=== PATIENT | female | born 1980 | race Caucasian/White ===

== ENCOUNTER 2018-10-13 18:54 | Emergency (ER) | payer OTHER ==
[2018-10-13 19:00] VITALS: BP 150/92; PULSE 88; TEMP 99.1; BMI 36.0
[2018-10-13] MEDS ORDERED: DEXAMETHASONE SOD PHOSPHATE 4 MG/1 ML VIAL IM ONE (20:00)
[2018-10-13] MEDS ORDERED: IBUPROFEN 600 MG TABLET (FP) PO ONE ×2 (20:00→20:02)
[2018-10-13] MEDS ORDERED: DEXAMETHASONE SOD PHOSPHATE 4 MG/1 ML VIAL ONE (20:02)
--- NOTE | 2018-10-13 20:22 | PDOC ---
Documentation entered by John Brito SCRIBE, acting as scribe for Beltran Vasquez MD. Beltran Vasquez MD: This documentation has been prepared by the Daryl olivier Nirvannie, SCRIBE, under my direction and personally reviewed by me in its entirety. I confirm that the documentation accurately reflects all work, treatment, procedures, and medical decision making performed by me. History of Present Illness - General Chief Complaint: Sore Throat Stated Complaint: SORE THROAT History Source: Patient, Unavil. due to pt. cond. - History of Present Illness Initial Comments: 10/13/18 19:53 CC: Sore throat. HPI: The patient is a 38 year old female, with no significant past medical history, who presents to the emergency department with 5 days of a sore throat. Patient notes an associated productive cough with yellow sputum and notes taking Motrin occasionally, with minimal relief prompting her arrival to the ED. She denies recent fevers, chills, headache or dizziness. She denies recent nausea, vomiting, diarrhea, or constipation. She denies recent dysuria, frequency, urgency or hematuria. She denies recent chest pain or shortness of breath. Allergies: NKDA Past surgical history: None reported. Social history: Nonsmoker. Denies EtOH use and recreational drug use. Past History - Past Medical History Allergies/Adverse Reactions: Allergies Allergy/AdvReac Type Severity Reaction Status Date / Time No Known Allergies Allergy Verified 10/13/18 18:58 Home Medications: Ambulatory Orders No Home Medications 0 dose .ROUTE UTDICT 03/07/13 COPD: No Other medical history: pt denies - Suicide/Smoking/Psychosocial Hx Smoking History: Never smoked Have you smoked in the past 12 months: No Information on smoking cessation initiated: No Hx Alcohol Use: (occasional) Review of Systems - Review of Systems Able to Perform ROS?: Yes Comments:: 10/13/18 19:53 ROS: A complete review of 10 out of 10 review of systems is taken and is negative apart from what is previously mentioned below and in the HPI. *Physical Exam - Vital Signs Last Vital Signs Temp Pulse Resp BP Pulse Ox 99.1 F 88 16 150/92 97 10/13/18 18:54 10/13/18 18:54 10/13/18 18:54 10/13/18 18:54 10/13/18 18:54 - Physical Exam Comments: 10/13/18 20:01 Exam Vitals: Triage Vital signs reviewed General Appearance: no acute distress, well nourished well developed, Head: Atraumatic, normocephalic Throat: Posterior oropharynx erythematous, mucous membranes moist, Neck: Supple;No Nuchal rigidity Chest Wall: Nontender Cardiac: Regular rate and rhythm, no murmurs, no rubs, no gallops, Lungs: Clear to auscultation bilateral, good air movement bilaterally, Abdomen: Soft, nondistended, normal bowel sounds, nontender to palpation Rectal: Exam deferred Extremities: Full range of motion to all extremities, no cyanosis, clubbing, or edema Skin: Warm and dry, no rashes or lesions, no petechiae Neuro: AOX3; Cranial Nerves 2-12 grossly c intact, Strength intact to all extremities, Sensation intact to all extremities. Psych: normal mood, normal affect ED Treatment Course - Medications Given in the ED: ED Medications Discontinued Medications Generic Name Dose Route Start Last Admin Trade Name Freq PRN Reason Stop Dose Admin Dexamethasone Sodium Phosphate 4 mg 10/13/18 20:00 10/13/18 20:08 Decadron Injection - IM 10/13/18 20:01 4 mg ONCE ONE Administration Ibuprofen 600 mg 10/13/18 20:00 10/13/18 20:08 Motrin - PO 10/13/18 20:01 600 mg ONCE ONE Administration Medical Decision Making - Medical Decision Making 10/13/18 19:53 38 year old female, with no significant past medical history, who presents to the emergency department with a sore throat. Plan is: Throat culture Reassess 10/13/18 20:19 Mild cough clear lungs sore throat history and examination consistent with pharyngitis/bronchitis likely viral in nature Rapid strep negative Patient given Decadron for discomfort and Motrin Feels better Findings, the need for follow-up and strict return instructions discussed with patient. *DC/Admit/Observation/Transfer Diagnosis at time of Disposition: Pharyngitis Qualifiers: Pharyngitis/tonsillitis etiology: unspecified etiology Qualified Code(s): J02.9 - Acute pharyngitis, unspecified - Discharge Dispostion Disposition: HOME Condition at time of disposition: Stable Decision to Admit order: No - Referrals Referrals: Riki Laura MD [Staff Physician] - - Patient Instructions Printed Discharge Instructions: Viral Pharyngitis Additional Instructions: Alternate Tylel Motrin every 3 hours as needed for pain. Take [id number] Robitussin-DM for cough. Drink plenty of fluids. Follow-up with Dr. Laura ENT if no improvement in symptoms. Return to the emergency room for any severe worsening symptoms or for any concerns. - Post Discharge Activity Forms/Work/School Notes: Back to Work
== END 2018-10-13 20:40 | disposition home or self-care (01) ==
LOC: FER 18:54
PROC: 3E023GC Introduction of Other Therapeutic Substance into Muscle, Percutaneous Approach (ICD-10-PCS; principal; 2018-10-13)
DX: J02.9 Acute pharyngitis, unspecified (principal)
CPT/HCPCS: 87070; 87880; 99282-25